=== PATIENT | male | born 1970 | race Caucasian/White ===

== ENCOUNTER 2019-04-15 15:20 | Emergency (ER) | payer OTHER, MEDICAID, SELFPAY ==
[2019-04-15 15:24] VITALS: BP 120/83; PULSE 102; RESP 15; TEMP 36.4; O2SAT 95; BMI 27.8
[2019-04-15 17:07] VITALS: BP 125/85; PULSE 86; RESP 14; O2SAT 99
--- NOTE | 2019-04-15 17:13 | ED.WOUNDLAC ---
HPI - Wound/Laceration <LUPE Nassar - Last Filed: 04/15/19 23:04> General Chief Complaint: Wound/Laceration Stated Complaint: LACERATION OF LEFT LEG Time Seen by Provider: 04/15/19 16:18 Source: patient Mode of arrival: ambulatory Limitations: no limitations History of Present Illness HPI narrative: 48-year-old male with a history of alcohol abuse, presents emergency department after cutting his right thigh with a saw about 2 hours ago. States that bleeding was controlled pressure he has minimal pain at this time. Slight pain with manipulation of laceration that is intermittent and dull. Denies numbness, tingling, fever, chest pain, shortness of breath, dizziness, swelling in the legs. Onset (ago): hour(s) Location: other Extremity Location: Right: lower leg Place: work Patient tetanus UTD: Yes Context: accidental Associated symptoms: pain Treatments prior to arrival: bandage Related Data Allergies Allergy/AdvReac Type Severity Reaction Status Date / Time No Known Drug Allergies Allergy Verified 04/15/19 15:24 Review of Systems <LUPE Nassar - Last Filed: 04/15/19 23:04> Review of Systems REVIEW OF SYSTEMS: GENERAL: Denies fever or chills. HENT: No head trauma, hearing loss or sore throat. EYES: No loss of vision, double vision, eye pain, or irritation. CARDIOVASCULAR: No chest pain or syncope. RESPIRATORY: No shortness of breath or cough. MUSCULOSKELETAL: No pain, weakness, or deformities. INTEGUMENTARY: Complains of laceration, see HPI. NEURO: No numbness, tingling, memory loss, or confusion. PSYCH: No behavior or mood changes. PFSH <LUPE Nassar - Last Filed: 04/15/19 23:04> Medical History H/O ETOH abuse (Acute) Social History Smoking Status: Current every day smoker Social History Smoking Status: Current every day smoker Exam <LUPE Nassar - Last Filed: 04/15/19 23:04> Initial Vital Signs Initial Vital Signs: Vital Signs Temperature 97.6 F 04/15/19 15:24 Pulse Rate 102 H 05/31/19 15:24 Respiratory Rate 15 04/15/19 15:24 Blood Pressure 120/83 04/15/19 15:24 Pulse Oximetry 95 04/15/19 15:24 PHYSICAL EXAMINATION: GENERAL: Poor hygiene, Alert, and cooperative. Occasionally makes inappropriate drugs. Answers questions promptly and appropriately. Vital signs noted. HENT: Normocephalic, atraumatic. Facial features symmetrical EYES: Conjunctiva pink, sclera white, no periorbital swelling. CHEST: Normal to inspection and without deformities. CARDIOVASCULAR: S1 and S2 sounds normal. Regular rate and rhythm, no murmurs, clicks, or bruits. No pedal edema. RESPIRATORY: Normal respiratory rate, trachea midline, airway patent. No stridor, nasal flaring or accessory muscle use. Lungs are clear in all jimenez without wheeze, rhonchi, or crackles. MUSCULOSKELETAL: Normal gait and coordination. Equal tone and mass bilaterally. EXTREMITIES: CMS intact. Full range of motion and 5/5 strength to upper and lower extremities SKIN: 7 cm laceration to anterior aspect of right thigh. Bleeding controlled without pressure. Subcutaneous tissue seen around the edges, wound explored, no foreign bodies, no tendon or muscle visible. NEURO: Alert and Oriented X 3. Good coordination. No ataxia, or sensory deficits, or cognitive issues. PSYCH: Appropriate affect and mood. <Gabriella Mustafa DO - Last Filed: 04/16/19 18:01> Initial Vital Signs Initial Vital Signs: Vital Signs Temperature 97.6 F 04/15/19 15:24 Pulse Rate 102 H 04/15/19 15:24 Respiratory Rate 15 04/15/19 15:24 Blood Pressure 120/83 04/15/19 15:24 Pulse Oximetry 95 04/15/19 15:24 Procedures <LUPE Nassar - Last Filed: 04/15/19 23:04> Laceration Repair Right Thigh: Site: lower extremity Side (If applicable): right Size (cm): 7 Description: linear Local Anesthetic: lidocaine 1% and with bicarb Amount of anesthesia used (mL): 15 Pre-repair: wound explored, irrigated extensively and deep structures intact Skin layer closed with: nylon Size (cm): 3-0 Number of sutures: 5 Technique: simple, interrupted Subcutaneous layer closed with: chromic gut Size: 4-0 Number of sutures: 2 Technique: simple, interrupted Course <LUPE Nassar - Last Filed: 04/15/19 23:04> Course Narrative: The patient tolerated procedure well. The was wound dressed with Neosporin and gauze. Consultations Consultation #1: Patient staffed with Dr. Mustafa whom agreed with plan of care. Vital Signs - 8 hr 04/15/19 15:24 04/15/19 17:07 Temperature 97.6 F Pulse Rate 102 H 86 Respiratory Rate 15 14 Blood Pressure 120/83 Blood Pressure [Right Arm] 125/85 Pulse Oximetry 95 99 <Gabriella Mustafa DO - Last Filed: 04/16/19 18:01> Vital Signs - 8 hr 04/15/19 15:24 04/15/19 17:07 Temperature 97.6 F Pulse Rate 102 H 86 Respiratory Rate 15 14 Blood Pressure 120/83 Blood Pressure [Right Arm] 125/85 Pulse Oximetry 95 99 MDM - Wound/Laceration <LUPE Nassar - Last Filed: 04/15/19 23:04> Medical Records Attestation: I reviewed the patient's medical records. Lab Data Attestation: I reviewed the patient's lab results. MDM Narrative Medical decision making narrative: Laceration was repaired with 2 internal stitches due to gapping of laceration. Follow-up instructions given and return precautions discussed. Discharge Plan Departure Patient Disposition: Home Clinical Impression: Laceration Discharge Date/Time: 04/15/19 17:22 Interventions: ED Discharge Assessment Last Done: 04/15/19 17:22 Instructions: DI for Laceration Repair Activity Restrictions/Additional Instructions: Thank you for entrusting me with your care today. As discussed, he will have 5 external sutures placed in a laceration. These can be removed in 7-10 days, follow up with their primary care provider for suture removal. Leave the bandage in place for 24 hours, after that you may rinse the wound gently but do not soak in water. Steri-Strips were placed on the wound as well do not pull these off, they will come off on their own. Please monitor for signs of infection such as redness, increased swelling, pus, fever, or chills. If this occurs return to the emergency department. <Gabriella Mustafa DO - Last Filed: 04/16/19 18:01> Cosign ED Attending Cosignature Attestation: I was immediately available in the department for consultation. This documentation has been reviewed. Supervised by Gabriella Mustafa DO
== END 2019-04-15 17:22 | disposition home or self-care (01) ==
PROVIDERS: Emergency Provider Nurse Practitioner
DX: S71.111A Laceration without foreign body, right thigh, initial encounter (principal); W26.8XXA Contact with other sharp object(s), not elsewhere classified, initial encounter
CPT/HCPCS: 12002; 99282; 99283